=== PATIENT | female | born 1990 | race Caucasian/White ===

== ENCOUNTER 2020-03-30 13:33 | Outpatient (CLI) | payer OTHER ==
[2020-03-30] MEDS ORDERED: GADOBUTROL 10 MMOL/10 ML VIAL ONE (13:55)
[2020-03-30] MEDS ORDERED: GADOBUTROL 10 MMOL/10 ML VIAL IVP ONE (15:28)
--- NOTE | 2020-03-30 16:11 | MRI Report ---
Reason: HEADACHES W/SENSORY CHANGES Procedure Date: 03/30/2020 Accession Number: [id number] / [id number] Procedure: MRI - Brain W/WO CPT Code: Final Report FULL RESULT: PROCEDURE: Brain W/WO INDICATIONS: HEADACHES W/SENSORY CHANGES CONTRAST: IV CONTRAST: Gadavist ml: 10 TECHNIQUE: Noncontrast axial T1 spin echo, axial T2 fast spin echo, sagittal and axial FLAIR, coronal T2 fast spin echo, axial gradient echo, axial 3-D thin section FFE images through the skull base, axial diffusion and ADC through the brain. After the administration of contrast, axial and coronal T1 spin echo with fat saturation through the brain, with thin section postcontrast T1-weighted images through the central skull base in the axial and coronal planes. COMPARISON: None. FINDINGS: Image quality: Excellent. CSF spaces: Basal cisterns are patent. No extra-axial fluid collections. Ventricles are normal in size and shape. Brain: No midline shift. No intracranial bleeds or masses. No abnormal intracranial enhancement. There is cerebral volume loss for age. There is periventricular white matter chronic small vessel ischemic change. The brainstem appears normal. Diffusion-weighted images demonstrate no acute ischemic insults. No chronic ischemic insults. Normal intravascular flow voids are present. In this patient with this given history, scrutiny is given to the trigeminal nerves. No abnormalities can be seen of the trigeminal nerves. No masses or abnormal signal can be seen along the courses, including within the Meckel's caves. Skull and face: Calvarial marrow is normal in signal. Orbits appear normal. Sinuses: No significant paranasal sinus disease is seen. There is moderate to prominent left-sided mastoid air cell fluid seen. No abnormal right mastoid air cell fluid can be seen. IMPRESSION: No imaging explanation is found for the patient's presenting symptoms. Unremarkable trigeminal nerves. No masses or abnormal enhancement can be seen. There is focal left mastoid air cell fluid seen. Please correlate with potential clinical findings of mastoiditis. Reviewed by: Kamaljit Brown MD on 03/30/2020 3:10 PM JAVAN Approved by: Kamaljit Brown MD on 03/30/2020 3:10 PM [facility] Station ID: [id number]
== END 2020-03-30 13:34 | disposition home or self-care (01) ==
LOC: DI 13:33
PROVIDERS: ATTEND Family Medicine
DX: R51 Headache (principal)
CPT/HCPCS: 70553; A9585

== ENCOUNTER 2020-11-10 10:52 | Outpatient (CLI) | payer OTHER ==
--- NOTE | 2020-11-10 11:54 | XRAY Report ---
PROCEDURE: Finger(s) LT INDICATIONS: DOG BITE, L 4TH DIGIT TECHNIQUE: AP hand, 2 views of the fourth finger(s) acquired. COMPARISON: None FINDINGS: Bones: No fractures or dislocations. No suspicious bony lesions. Soft tissues: No suspicious soft tissue calcifications. No radiopaque foreign body. IMPRESSION: No radiopaque foreign body. No visualized fracture. Reviewed by: Shania Langford MD on 11/10/2020 11:53 AM [facility] Approved by: Shania Langford MD on 11/10/2020 11:53 AM [facility] Station ID: [id number]
== END 2020-11-10 23:59 | disposition home or self-care (01) ==
LOC: DI.N 10:52
PROVIDERS: ATTEND Nurse Practitioner
DX: S61.255A Open bite of left ring finger without damage to nail, initial encounter (principal); W54.0XXA Bitten by dog, initial encounter